=== PATIENT | male | born 2000 | race Caucasian/White ===

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

== ENCOUNTER 2018-03-10 14:52 | Emergency (ER) | payer BC ==
[2018-03-10 15:15] VITALS: BP 116/58
[2018-03-10] MEDS ORDERED: Lidocaine 1%* 5 ML VIAL INJ ONE (16:12)
[2018-03-10] MEDS ORDERED: Bupivacaine 0.25% SDV PF* 10 ML VIAL INJ ONE ×3 (16:12→16:29)
--- NOTE | 2018-03-10 16:14 | RAD ---
Indication: Crush injury middle finger RIGHT hand. Pain. Comparison: No relevant prior exams available on the [facility] for comparison. Technique: 3 views RIGHT third finger. REPORT AND IMPRESSION: #. Negative for fracture or articular malalignment. Mild fusiform soft tissue swelling.
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
== END 2018-03-10 18:06 | disposition home or self-care (01) ==
LOC: UCCORT 14:52
DX: S61.312A Laceration without foreign body of right middle finger with damage to nail, initial encounter (principal); W23.0XXA Caught, crushed, jammed, or pinched between moving objects, initial encounter; Y93.89 Activity, other specified; Y92.009 Unspecified place in unspecified non-institutional (private) residence as the place of occurrence of the external cause; F17.210 Nicotine dependence, cigarettes, uncomplicated
CPT/HCPCS: 11760; 11765; 73140; 99212; G0463; J3490

== ENCOUNTER 2019-01-04 17:12 | Emergency (ER) | payer SELFPAY ==
[2019-01-04 17:22] VITALS: BP 115/57
--- NOTE | 2019-01-04 17:30 | UC ---
Nausea/Vomiting/Diarrhea HPI - HPI Summary HPI Summary: Vomiting today two times, the most recent being 12 noon. Pt also wants STD testing because his girlfriend is and she "had a disease". He denies any rashes, lesions or penile drainage. - History of Current Complaint Chief Complaint: UCGU Stated Complaint: BODY ACHES/STOMACHE ACHE Time Seen by Provider: 01/04/19 17:17 Hx Obtained From: Patient Onset/Duration: Sudden Onset, Lasting Hours Timing: Intermittent Episodes Lasting: - only vomited twice, stomache ache prior to vomiting, now just sore but with no specific point tenderness. Severity Initially: Mild Severity Currently: Mild Pain Intensity: 4 Location: Diffuse Character: Not Applicable - achy at times mostly prior to vomiting. Aggravating Factor(s): Nothing Alleviating Factor(s): Vomiting Nausea/Vomiting Presence: Vomiting Vomiting Frequency: Daily - only twice today Diarrhea Presence: No - Allergies/Home Medications Allergies/Adverse Reactions: Allergies Allergy/AdvReac Type Severity Reaction Status Date / Time No Known Allergies Allergy Verified 01/04/19 17:22 Home Medications: Home Medications NK [No Home Medications Reported] 01/04/19 [History Confirmed 01/04/19] PMH/Surg Hx/FS Hx/Imm Hx Previously Healthy: Yes - Surgical History Surgical History: Yes Surgery Procedure, Year, and Place: T & A. B/L EAR TUBES X 2 - Family History Known Family History: Positive: Diabetes Negative: Cardiac Disease, Hypertension - Social History Alcohol Use: Rare Substance Use Type: None Substance Use Comment - Amount & Last Used: 08/23/17-"couple days ago" Smoking Status (MU): Light Every Day Tobacco Smoker Type: Cigarettes Amount Used/How Often: 1 PPD Length of Time of Smoking/Using Tobacco: SINCE AGE 13 YRS Household Exposure Type: Cigarettes - Immunization History Vaccination Up to Date: No Review of Systems All Other Systems Reviewed And Are Negative: Yes Constitutional: Positive: Negative Gastrointestinal: Positive: Vomiting, Nausea - Vomiting has resolved as well as nausea. Felling better but needs a work note Genitourinary: Positive: Negative, Other - wants STD testing but denies any symptoms of STD's Is Patient Immunocompromised?: No Physical Exam Triage Information Reviewed: Yes Appearance: Well-Appearing, No Pain Distress, Well-Nourished Vital Signs: Initial Vital Signs Temp 98.1 F 01/04/19 17:20 Pulse 56 01/04/19 17:20 Resp 16 01/04/19 17:20 BP 115/57 01/04/19 17:20 Pulse Ox 100 01/04/19 17:20 Vital Signs Reviewed: Yes Eyes: Positive: Conjunctiva Clear ENT: Positive: Hearing grossly normal, Pharynx normal, TMs normal, Uvula midline Neck: Positive: Supple, Nontender, No Lymphadenopathy Respiratory: Positive: Lungs clear, Normal breath sounds, No respiratory distress, No accessory muscle use Cardiovascular: Positive: RRR, No Murmur, Pulses Normal, Brisk Capillary Refill Abdomen Description: Positive: Nontender, No Organomegaly, Soft. Negative: CVA Tenderness (R), CVA Tenderness (L), Distended, Guarding, Hepatomegaly, McBurney' s Point Tenderness, Splenomegaly Bowel Sounds: Positive: Present Musculoskeletal Exam: Normal Neurological Exam: Normal Psychological Exam: Normal Skin Exam: Normal Naus/Vom/Diarrhea Course/Dx - Course Course Of Treatment: I believe pt has a viral illness. He is to increase fluids and gradually progress to a regular diet. Go to the ER of worsening abdominal pain or follow up with PCP if no improvement. We will call with GC/CHLAM results if positive. May follow up at [facility] for any further testing he desires. - Differential Dx/Diagnosis Provider Diagnosis: Viral illness Condition At Discharge: Fair Discharge - Sign-Out/Discharge Documenting (check all that apply): Patient Departure All imaging exams completed and their final reports reviewed: No Studies - Discharge Plan Condition: Fair Disposition: HOME Patient Education Materials: Acute Nausea and Vomiting (ED) Forms: *Work Release Referrals: [facility] [Outside] No Primary Care Phys,NOPCP [Primary Care Provider] - [facility] [Outside] Additional Instructions: Increase fluids, avoid spicy and fatty foods. Gradually increase to your regular diet. Follow up at [facility] if no improvement in 2-3 days. We will call you with the urine results if they come back positive. - Billing Disposition and Condition Condition: FAIR Disposition: Home - Attestation Statements Provider Attestation: I was available for consult. This patient was seen by the MARY ANNE. The patient was not presented to , seen by or examined by la -Rowena Muse MD
[2019-01-06 12:09] LABS: Neisseria gonorrhoeae (GC) RNA Negative (Negative)
== END 2019-01-04 17:52 | disposition home or self-care (01) ==
LOC: UCCORT 17:12
DX: B34.9 Viral infection, unspecified (principal); F17.210 Nicotine dependence, cigarettes, uncomplicated
CPT/HCPCS: 87491; 87591; 99211; G0463

== ENCOUNTER 2019-02-27 16:22 | Emergency (ER) | payer SELFPAY ==
[2019-02-27 16:59] VITALS: BP 147/80
--- NOTE | 2019-02-27 17:25 | UC ---
UC General HPI - HPI Summary HPI Summary: PT REPORTS HAVING "AN UPSET STOMACH" SINCE LAST NIGHT. THIS AM HE DEVELOPED SOME NAUSEA AND VOMITED ONCE. HE DENIES ANY DIARRHEA AND IBD. HE HAS NO FEVER OR CHILLS. NO HX INJURY. HE DENIES ANY GENITAL SWELLING OR TESTICULAR PAIN. HE SOMETIMES GETS GENERALIZED ABDOMINAL CRAMPS WITH THIS WELL. - History of Current Complaint Chief Complaint: UCGI Stated Complaint: STOMACH ACHE Time Seen by Provider: 02/27/19 17:18 Hx Obtained From: Patient Pain Intensity: 6 Aggravating: NOTHING - Allergy/Home Medications Allergies/Adverse Reactions: Allergies Allergy/AdvReac Type Severity Reaction Status Date / Time No Known Allergies Allergy Verified 02/27/19 16:59 PMH/Surg Hx/FS Hx/Imm Hx Previously Healthy: Yes - Surgical History Surgical History: Yes Surgery Procedure, Year, and Place: T & A. B/L EAR TUBES X 2 - Family History Known Family History: Positive: Diabetes Negative: Cardiac Disease, Hypertension - Social History Occupation: Employed Full-time Alcohol Use: Occasionally Substance Use Type: None Substance Use Comment - Amount & Last Used: 08/23/17-"couple days ago" Smoking Status (MU): Light Every Day Tobacco Smoker Type: Cigarettes Amount Used/How Often: 1/2 PPD Length of Time of Smoking/Using Tobacco: SINCE AGE 13 YRS Household Exposure Type: Cigarettes - Immunization History Vaccination Up to Date: No Review of Systems All Other Systems Reviewed And Are Negative: No Constitutional: Negative: Fever, Chills ENT: Negative: Sore Throat, Ear Ache, Sinus Congestion Respiratory: Negative: Shortness Of Breath, Cough Cardiovascular: Negative: Palpitations, Chest Pain Gastrointestinal: Positive: Vomiting, Nausea. Negative: Abdominal Pain, Diarrhea Genitourinary: Negative: Dysuria, Hematuria Neurological: Negative: Headache Physical Exam Triage Information Reviewed: Yes Appearance: Well-Appearing Vital Signs: Initial Vital Signs Temp 99.2 F 02/27/19 16:52 Pulse 64 02/27/19 16:52 Resp 16 02/27/19 16:52 BP 147/80 02/27/19 16:52 Pulse Ox 100 02/27/19 16:52 Vital Signs Reviewed: Yes Eyes: Positive: Conjunctiva Clear ENT: Positive: Pharynx normal, TMs normal. Negative: Nasal congestion, Nasal drainage Neck: Positive: Supple, Nontender, No Lymphadenopathy Respiratory: Positive: Lungs clear, Normal breath sounds, No respiratory distress Cardiovascular: Positive: RRR, No Murmur Abdomen Description: Positive: Other: - Flat. +BS. Soft. Non tender. No mass. No HSM or CVA tenderness.. Negative: McBurney's Point Tenderness Musculoskeletal: Positive: ROM Intact Neurological: Positive: Alert Psychological: Positive: Age Appropriate Behavior Skin Exam: Normal Skin: Negative: Rashes Course/Dx - Course Course Of Treatment: pt refusing medication for n/v. - Differential Dx - Multi-Symptom Differential Diagnoses: Other - non toxic. no acute abdomen. no testicular pain of complaints. pt advised of need for close f/u for recheck plus go to ER for any changes or worsening to which he agrees. - Diagnoses Provider Diagnosis: Nausea and vomiting Discharge ED - Sign-Out/Discharge Documenting (check all that apply): Patient Departure All imaging exams completed and their final reports reviewed: No Studies - Discharge Plan Condition: Stable Disposition: HOME Patient Education Materials: Acute Nausea and Vomiting (ED), Abdominal Pain (ED ) Forms: *Work Release Referrals: BRADLEY Aquino [Medical Doctor] - 3 Days Additional Instructions: GO TO THE ER IMMEDIATELY FOR ANY FEVER, CHANGES OR WORSENING. - Billing Disposition and Condition Condition: STABLE Disposition: Home
== END 2019-02-27 17:35 | disposition home or self-care (01) ==
LOC: UCCORT 16:22
DX: R11.2 Nausea with vomiting, unspecified (principal); F17.210 Nicotine dependence, cigarettes, uncomplicated
CPT/HCPCS: 99211; G0463